=== PATIENT | male | born 1940 | race Caucasian/White ===

== ENCOUNTER 2017-01-20 17:42 | Emergency (ER) | payer MEDICARE, OTHER ==
[2016-04-22 06:48] VITALS: BMI 28.2
[~2017-01-20 17:42] MED LIST: AFRIN NASAL SPR15 ML; BAYER CHEWABLE81 MG PO; BRILINTA90 MG PO; CLOTRIMAZOLE-BE30 ML TOPICAL; LIPITOR20 MG PO; PROTONIX40 MG PO
== END 2017-01-20 20:46 | disposition home or self-care (01) ==
LOC: D.ER 17:42
DX: S61.211A Laceration without foreign body of left index finger without damage to nail, initial encounter (principal); W26.9XXA Contact with unspecified sharp object(s), initial encounter; Y93.89 Activity, other specified; Y92.89 Other specified places as the place of occurrence of the external cause; I10 Essential (primary) hypertension

== ENCOUNTER → 2018-08-28 12:41 | Outpatient (CLI) | payer MEDICARE, OTHER ==
[2016-04-22 06:48] VITALS: BMI 28.2
== END | disposition home or self-care (01) ==
LOC: D.NM 12:41
DX: K31.89 Other diseases of stomach and duodenum (principal); D13.1 Benign neoplasm of stomach; R14.2 Eructation

== ENCOUNTER 2018-10-12 23:39 | Emergency (ER) | payer MEDICARE, OTHER ==
[~2018-10-12] VITALS: Ht 170.2 cm; Wt 80.5 kg
[2018-10-12 23:42] VITALS: Ht 170.2 cm; Wt 80.5 kg
[2018-10-13 00:18] LABS: APPEARANCE CLEAR (CLEAR); BILIRUBIN NEGATIVE (NEGATIVE); COLOR YELLOW (YELLOW); GLUCOSE NEGATIVE (NEGATIVE); KETONE NEGATIVE (NEGATIVE); NITRITE NEGATIVE (NEGATIVE); PROTEIN NEGATIVE (NEGATIVE); RED CELLS - URINE 0-5 /hpf (0-5); SPECIFIC GRAVITY 1.015 (1.005-1.020); UROBILINOGEN NORMAL (NORMAL); WHITE CELLS - URINE NSEEN /hpf (0-5)
[2018-10-13] MEDS ORDERED: HYDROCODON-ACE1 EA10 PO (02:06)
[2018-10-13 02:15] VITALS: BP 132/75
== END 2018-10-13 02:15 | disposition home or self-care (01) ==
LOC: D.ER 23:39
PROVIDERS: Emergency Medicine
DX: M54.5 Low back pain (principal); I10 Essential (primary) hypertension; Z86.73 Personal history of transient ischemic attack (TIA), and cerebral infarction without residual deficits

== ENCOUNTER → 2020-03-12 17:46 | Outpatient (CLI) | payer MEDICARE, OTHER ==
[2018-10-12 23:42] VITALS: BMI 27.8
[~2020-03-12 17:46] MED LIST changes: +HYDROCODON-ACE1 EA10 PO
[2020-03-12 18:47] LABS: CHOL - HDL RATIO 2.9 ratio (2.3-4.9); LDL-HDL RATIO 1.6 ratio (1.5-3.5)
== END | disposition home or self-care (01) ==
LOC: D.LABREF 17:46
PROVIDERS: ATTEND Nurse Practitioner
DX: I25.10 Atherosclerotic heart disease of native coronary artery without angina pectoris (principal); E78.5 Hyperlipidemia, unspecified